=== PATIENT | male | born 1985 | race African-American/Black ===

== ENCOUNTER 2016-08-09 11:15 | Emergency (ER) | payer OTHER ==
[~2016-08-09] VITALS: Ht 188 cm; Wt 104.3 kg
[2016-08-09] MEDS ORDERED: NKM (11:28)
[2016-08-09 11:31] VITALS: BP 145/82
[2016-08-09 12:52] VITALS: BP 132/79
--- NOTE | 2016-08-09 12:58 | Emergency Room Report ---
History of Present Illness General Chief Complaint: Skin Rash/Abscess Source: Patient Present Illness HPI 30-year-old male presents emergency department complaining of intermittent episodes of hives after staying at his girlfriend's house x2 weeks. Patient reports that when he spent the night at his girlfriend's house he wakes up with swollen itchy rash of the arms, the back and buttock. Patient denies lesions or bites patient states that after dear to the rash will resolve however it will reappear when he said tonight again at his girlfriend's house. Patient states that the rash is in the same spots and appears to become worse each time. Denies wheezing swelling to lips or time denies rash on the neck or face. he denies taking medications for symptoms. he denies sneezing or itchy watery eyes. he denies history of allergies. Denies CP, Palpitations, LOC, AMS , dizziness, Changes in Vision, Sensation, paresthesias, or a sudden severe headache. Allergies: Coded Allergies: No Known Allergies (Unverified , 08/09/16) Patient History Past Medical History: see triage record Past Surgical History: none Pertinent Family History: none Immunizations: UTD Reviewed Nursing Documentation: PMH: Agreed, PSxH: Agreed Nursing Documentation-PMH Past Medical History: No Stated History Review of Systems All Other Systems: negative except mentioned in HPI Physical Exam Vital Signs Date Time Temp Pulse Resp B/P Pulse Ox O2 Delivery O2 Flow Rate FiO2 08/09/16 11:20 98.6 71 16 145/82 96 Room Air Sp02 EP Interpretation: reviewed, normal General Appearance: no apparent distress, alert, GCS 15, non-toxic Head: normocephalic, atraumatic Eyes: bilateral eye PERRL, bilateral eye normal inspection ENT: hearing grossly normal, normal pharynx, no angioedema, normal voice Neck: full range of motion, supple/symm/no masses Respiratory: lungs clear, normal breath sounds, speaking full sentences Cardiovascular #1: regular rate, rhythm, no edema Gastrointestinal: soft, no guarding, no rebound Rectal: deferred Musculoskeletal: back normal, gait/station normal, normal range of motion, non- tender, no calf tenderness Neurologic: alert, oriented x3, responsive, motor strength/tone normal, sensory intact, speech normal Psychiatric: judgement/insight normal, memory normal, mood/affect normal, no suicidal/homicidal ideation Skin: normal color, warm/dry, well hydrated, rash - blanching erythematous rash on the bilateral forearms, and right upper glute, no obvious lesions, no evidence of secondary infection at this time. Lymphatic: no adenopathy Medical Decision Making PA Attestation Dr. Sanz is my supervising Physician whom patient management has been discussed with. Diagnostic Impression: Primary Impression: Dermatitis ER Course 30-year-old male presents emergency department complaining of intermittent episodes of hives after staying at his girlfriend's house x2 weeks. Patient reports that when he spent the night at his girlfriend's house he wakes up with swollen itchy rash of the arms, the back and buttock. Patient denies lesions or bites patient states that after dear to the rash will resolve however it will reappear when he said tonight again at his girlfriend's house. Patient states that the rash is in the same spots and appears to become worse each time. Denies wheezing swelling to lips or time denies rash on the neck or face. he denies taking medications for symptoms. he denies sneezing or itchy watery eyes. he denies history of allergies Ddx considered but are not limited to cellulitis, scabies, shingles, varicella, dermatitis, urticaria, eczema, tinea Vital signs: are WNL, pt. is afebrile H&PE are most consistent with contact dermatitis ORDERS: none required at this time, the diagnosis is clinical ED INTERVENTIONS: None required at this time. - D/W pt. to follow up with PCP may require allergy testing. DISCHARGE: At this time pt. is stable for d/c to home. Will provide printed patient care instructions, and any necessary prescriptions. Care plan and follow up instructions have been discussed with the patient prior to discharge. Last Vital Signs Date Time Temp Pulse Resp B/P Pulse Ox O2 Delivery O2 Flow Rate FiO2 08/09/16 12:52 98.6 16 132/79 96 Room Air 08/09/16 11:20 71 Disposition: HOME, SELF-CARE Condition: Stable Scripts Hydrocortisone 2% Cream (ANTI-ITCH 2% CREAM) Y Cr 1 APPLIC TP QID, #56 GM Prov: Judy Guzman 08/09/16 Loratadine (CLARITIN) 10 Mg Tablet 10 MG ORAL DAILY for 14 Days, #30 TAB Prov: Judy Guzman 08/09/16 Hydroxyzine HCl (Hydroxyzine HCl) 25 Mg Tablet 25 MG ORAL FOUR TIMES A DAY for 14 Days, #60 TAB Prov: Judy Guzman 08/09/16 Referrals: NOT CHOSEN IPA/MD,REFERRING (PCP) Patient Instructions: Rash Additional Instructions: Take medications as directed. Follow up with PCP in 3-5 days Return sooner to ED if new symptoms occur, or current symptoms become worse. Do not drink alcohol, drive, or operate heavy machinery while taking Hydroxyzine as this may cause drowsiness. - Please note that this Emergency Department Report was dictated using [employer] web worker technology software, occasionally this can lead to erroneous entry secondary to interpretation by the dictation equipment. Judy Guzman Aug 09, 2016 12:58
[2016-08-09] MEDS ORDERED: ANTI-ITCH56 GM TP (13:01)
[2016-08-09] MEDS ORDERED: ATARAX25 MG ORAL (13:01)
[2016-08-09] MEDS ORDERED: CLARITIN10 MG ORAL (13:01)
== END 2016-08-09 12:59 | disposition home or self-care (01) ==
LOC: EMR 12:09
DX: L30.9 Dermatitis, unspecified (principal)
CPT/HCPCS: 99284

== ENCOUNTER 2019-01-03 00:15 | Emergency (ER) | payer OTHER ==
[~2019-01-03] VITALS: Ht 188 cm; Wt 106.6 kg
[~2019-01-03 00:15] MED LIST: ANTI-ITCH56 GM TP; ATARAX25 MG ORAL; CLARITIN10 MG ORAL; NKM
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
[2019-01-03 02:00] VITALS: BP 149/88
--- NOTE | 2019-01-03 02:10 | NUR ---
ER DISCHARGE NOTE: Patient is cleared to be discharged per ERMD, pt is aox4, on room air, with stable vital signs. pt was given dc and prescription instructions, pt was able to verbalize understanding, pt id band removed without complications. pt is able to ambulate with steady gait. pt took all belongings.
[2019-01-03 02:15] VITALS: BP 166/112
--- NOTE | 2019-01-03 13:20 | Cardiology Report ---
APPROVED REPORT EKG Measurement Heart [id number] Sinus bradycardia Possible Left atrial enlargement Borderline ECG
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
== END 2019-01-03 02:15 | disposition home or self-care (01) ==
LOC: EMR 00:43
DX: S20.219A Contusion of unspecified front wall of thorax, initial encounter (principal); V43.52XA Car driver injured in collision with other type car in traffic accident, initial encounter; Y92.410 Unspecified street and highway as the place of occurrence of the external cause; I10 Essential (primary) hypertension
CPT/HCPCS: 71046; 93005; 99283